=== PATIENT | female | born 1975 | race Native Hawaiian/Other Pacific Islander ===

== ENCOUNTER 2016-07-14 08:43 | Emergency (ER) | payer BC, OTHER ==
[2016-07-14 08:48] VITALS: BP 122/75; PULSE 59; TEMP 98.1; BMI 29.3
[2016-07-14] MEDS ORDERED: predniSONE 20 MG TABLET (UD) PO ONE (09:38)
--- NOTE | 2016-07-14 09:43 | PDOC ---
History of Present Illness - General Chief Complaint: Respiratory Stated Complaint: SOB, COUGH, (ASTHMA) Time Seen by Provider: 07/14/16 09:01 History Source: Patient Exam Limitations: No Limitations - History of Present Illness Initial Comments: 07/14/16 09:41 Chief complaint: Productive cough, shortness of breath with wheezing getting worse History of present illness: Patient is a 41-year-old female with a history of asthma and lupus here today complaining of a productive cough with beige to brownish color sputum 3 days with shortness of breath with wheezing unrelieved by using Ventolin pump multiple times for the last few days. Patient denies ever being hospitalized due to her asthma. Patient reports that she had an upper respiratory infection that started 1 week ago with nasal congestion and clear rhinorrhea and sore throat with a cough that has progressed to her current symptoms. Patient reports feeling short of breath even at rest worse with exertion. Patient denies any chance of . Patient denies fever. Patient denies any nasal congestion or sore throat or nausea or vomiting presently. Timing/Duration: getting worse Severity: moderate Associated Symptoms: reports: cough (productive beige ), shortness of breath ( with wheezing ) Past History - Past Medical History Allergies/Adverse Reactions: Allergies Allergy/AdvReac Type Severity Reaction Status Date / Time No Known Allergies Allergy Verified 07/14/16 08:45 Home Medications: Ambulatory Orders Albuterol Sulfate Inhaler - [Ventolin HFA Inhaler -] 2 inh PO Q4H PRN #1 inhaler MDD 6 07/14/16 Azithromycin [Zithromax 250mg Tablets -] 250 mg PO UTDICT #6 tab 07/14/16 Prednisone [Deltasone -] 20 mg PO BID #8 tablet 07/14/16 Asthma: Yes Other medical history: LUPUS - Psycho/Social/Smoking Cessation Hx Suicidal Ideation: No Smoking Status: Yes Smoking History: Current every day smoker Have you smoked in the past 12 months: Yes Number of Cigarettes Smoked Daily: 3 Information on smoking cessation initiated: No Review of Systems - Review of Systems Able to Perform ROS?: Yes Constitutional: No: Symptoms Reported HEENTM: No: Symptoms Reported Respiratory: Yes: Shortness of Breath, SOB with Exertion, SOB at Rest, Wheezing (diffuse ), Productive cough (beige for 3 days ) Cardiac (ROS): No: Symptoms Reported ABD/GI: No: Symptoms Reported : No: Symptoms Reported Musculoskeletal: No: Symptoms Reported Integumentary: No: Symptoms Reported *Physical Exam - Vital Signs Last Vital Signs Temp Pulse Resp BP Pulse Ox 98.1 F 59 L 20 122/75 95 07/14/16 08:45 07/14/16 08:45 07/14/16 08:45 07/14/16 08:45 07/14/16 08:45 - Physical Exam General Appearance: Yes: Appropriately Dressed HEENT: positive: Normal ENT Inspection Neck: negative: Lymphadenopathy (R), Lymphadenopathy (L) Respiratory/Chest: positive: Rhonchi (b/l clears slightly with cough ), Wheezing (diffuse expiratory ) Cardiovascular: positive: Regular Rhythm, Regular Rate, S1, S2 Integumentary: positive: Normal Color Neurologic: positive: Alert, Normal Response, Responsive ED Treatment Course - RADIOLOGY Radiology Studies Ordered: Category Date Time Status CHEST PA & LAT [RAD] Stat Radiology 07/14/16 09:38 Ordered Medical Decision Making - Medical Decision Making 07/14/16 09:41 07/14/16 09:42 Patient is a 41-year-old female with a history of asthma and lupus here today complaining of a productive cough with beige to brownish color sputum 3 days with shortness of breath with wheezing unrelieved by using Ventolin pump multiple times for the last few days. Patient denies ever being hospitalized due to her asthma. Patient reports that she had an upper respiratory infection that started 1 week ago with nasal congestion and clear rhinorrhea and sore throat with a cough that has progressed to her current symptoms. Patient reports feeling short of breath even at rest worse with exertion. Patient denies any chance of . Patient denies fever. Patient denies any nasal congestion or sore throat or nausea or vomiting presently. Reports going to [facility] 2 days ago was given nebulizer treatment and was told to use Mucinex DM which she has done which has not relieved symptoms. Asthma exacerbation Rule out infiltrate Plan: Prednisone 60 mg by mouth now then 20 mg twice a day for following 4 days DuoNeb every 15 minutes 3 X-ray chest PA and lateral no infiltrate azithromycin 250 mg 2 tabs today than one tab daily for following 4 days albuterol HFA 2 puffs every 4 hr prn wheezing/sob 07/14/16 10:49 *DC/Admit/Observation/Transfer Diagnosis at time of Disposition: Exacerbation of asthma, Bronchitis - Discharge Dispostion Disposition: HOME Condition at time of disposition: Stable - Prescriptions Prescriptions: Prednisone [Deltasone -] 20 mg PO BID #8 tablet Albuterol Sulfate Inhaler - [Ventolin HFA Inhaler -] 2 inh PO Q4H PRN #1 inhaler MDD 6 PRN Reason: Short Of Breath/Wheezing Azithromycin [Zithromax 250mg Tablets -] 250 mg PO UTDICT #6 tab - Patient Instructions Additional Instructions: Drink A lot a fluids and rest Return to emergency room if symptoms worsen any difficulty breathing Today your chest x-ray was negative for pneumonia Follow-up with your primary care provider within the next few days Patient voiced understanding of discharge instructions and all questions were answered
[2016-07-14] MEDS ORDERED: ALBUTEROL SO4 2.5/IPRATROPIUM 0.5 INH SOL 3 ML VIAL.NEB. NEB ONE (09:47)
[2016-07-14] MEDS ORDERED: predniSONE 20 MG TABLET (UD) ONE (09:47)
[2016-07-14] MEDS: ALBUTEROL SO4 2.5/IPRATROPIUM 0.5 INH SOL 3 ML VIAL.NEB. NEB SCH ×4 (09:52→11:03)
== END 2016-07-14 11:05 | disposition home or self-care (01) ==
LOC: JERFT 08:43
PROC: 3E0F7GC Introduction of Other Therapeutic Substance into Respiratory Tract, Via Natural or Artificial Opening (ICD-10-PCS; principal; 2016-07-14)
DX: J45.901 Unspecified asthma with (acute) exacerbation (principal); J40 Bronchitis, not specified as acute or chronic
CPT/HCPCS: 71020-TC; 99281-25

== ENCOUNTER 2016-07-15 08:48 | Emergency (ER) | payer OTHER ==
[2016-07-15 08:56] VITALS: TEMP 97.7; BMI 29.3
--- NOTE | 2016-07-15 09:22 | PDOC ---
History of Present Illness - General History Source: Patient Exam Limitations: No Limitations - History of Present Illness Initial Comments: 07/15/16 11:24 The patient is a 41 year old female with a significant past medical history of asthma, and lupus, presenting to the Emergency Department with constant right lower quadrant abdominal pain since last night. The patient reports that she was seen in the ED yesterday (07/14) for bronchitis, and reports that she developed lower right abdominal pain in the middle of the night after she coughed very hard. She describes the pain as if she pulled something at her lower right side, and rates the pain as a 4/10 in intensity, exacerbated by coughing. The patient reports that her last menstrual period was 2 weeks ago. The patient denies nausea, vomiting, and diarrhea. Patient denies fever, or chills. Patient denies dysuria, hematuria, or urinary frequency. Patient denies neck pain, or back pain. Past Medical Hx: asthma, lupus, herniated discs Surgical Hx: (19 years ago) <Kenyatta Nieto - Last Filed: 07/15/16 11:28> <Av Betancourt - Last Filed: 07/15/16 11:55> - General Chief Complaint: Pain Stated Complaint: ABD PAIN Time Seen by Provider: 07/15/16 09:06 Past History <Kenyatta Nieto - Last Filed: 07/15/16 11:28> - Past Medical History Asthma: Yes - Psycho/Social/Smoking Cessation Hx Suicidal Ideation: No Smoking Status: Yes Smoking History: Former smoker Have you smoked in the past 12 months: No Number of Cigarettes Smoked Daily: 3 If you are a former smoker, when did you quit?: 2017 Information on smoking cessation initiated: No Hx Alcohol Use: No Drug/Substance Use Hx: No Substance Use Type: None <Av Betancourt - Last Filed: 07/15/16 11:55> - Past Medical History Allergies/Adverse Reactions: Allergies Allergy/AdvReac Type Severity Reaction Status Date / Time No Known Allergies Allergy Verified 07/15/16 08:52 Home Medications: Ambulatory Orders Albuterol Sulfate Inhaler - [Ventolin HFA Inhaler -] 2 inh PO Q4H PRN #1 inhaler MDD 6 07/14/16 Azithromycin [Zithromax 250mg Tablets -] 250 mg PO UTDICT #6 tab 07/14/16 Prednisone [Deltasone -] 20 mg PO BID #8 tablet 07/14/16 Review of Systems - Review of Systems Able to Perform ROS?: Yes Comments:: 07/15/16 11:24 CONSTITUTIONAL: No reported: Fever, Chills, Diaphoresis, Generalized Weakness, Malaise, Loss of Appetite HEENT: No reported: Rhinorrhea, Nasal Congestion, Throat Pain, Throat Swelling, Difficulty Swallowing, Mouth Swelling, Ear Pain, Eye Pain, Visual Changes CARDIOVASCULAR: No reported: Chest Pain, Syncope, Palpitations, Irregular Heart Rate, Lightheadedness, Peripheral Edema RESPIRATORY: Reported: + Cough No reported: Shortness of Breath, SOB with Exertion, Orthopnea, Stridor, Hemoptysis GASTROINTESTINAL: Reported: + Right lower quadrant abdominal pain No reported: Abdominal Distension, Nausea, Vomiting, Diarrhea, Constipation, Melena, Hematochezia GENITOURINARY: No reported: Dysuria, Frequency, Urgency, Hesitancy, Flank Pain, Genital Pain MUSCULOSKELETAL: No reported: Arthralgia, Joint Swelling, Back pain, Neck Pain SKIN: No reported: Rash, Itching, Pallor HEMATOLOGIC/IMMUNOLOGIC: No reported: Easy Bleeding, Easy Bruising, Lymphadenopathy, Frequent infections ENDOCRINE: No reported: Unexplained Weight Gain, Unexplained Weight Loss, Heat Intolerance , Cold Intolerance NEUROLOGIC: No reported: Headache, Focal Weakness, Paresthesias, Vertigo, Lightheadedness, Unsteady Gait, Seizure, Mental Status Changes, Incontinence PSYCHIATRIC: No reported: Anxiety, Depression <Kenyatta Nieto - Last Filed: 07/15/16 11:28> *Physical Exam - Vital Signs Last Vital Signs Temp Pulse Resp BP Pulse Ox 97.7 F 105 H 18 115/68 98 07/15/16 08:50 07/15/16 08:50 07/15/16 08:50 07/15/16 08:50 07/15/16 08:50 - Physical Exam Comments: 07/15/16 11:28 GENERAL: The patient is awake, alert, and fully oriented, Nontoxic - in no acute distress. HEAD: Normocephalic, atraumatic. EYES: extraocular movements intact, sclera anicteric, conjunctiva clear. ENT: Normal voice, Moist mucous membranes. NECK: Normal range of motion, No JVD LUNGS: Scattered rhonchi and wheezing bilaterally. Breath sounds equal, clear to auscultation bilaterally. HEART: Regular rate and rhythm, normal S1 and S2 without murmur, rub or gallop. ABDOMEN: Mild right lower quadrant tenderness. Negative Rovsings sign. No rebound, no guarding. Soft, normoactive bowel sounds. No masses. No CVA tenderness EXTREMITIES: Normal range of motion, no edema. No clubbing or cyanosis. No cords , erythema, or tenderness. NEUROLOGICAL: No facial asymmetry, Normal speech, normal gait. PSYCH: Normal mood, normal affect. SKIN: Warm, Dry, normal turgor. <Kenyatta Nieto - Last Filed: 07/15/16 11:28> - Vital Signs Last Vital Signs Temp Pulse Resp BP Pulse Ox 97.7 F 105 H 18 115/68 98 07/15/16 08:50 07/15/16 08:50 07/15/16 08:50 07/15/16 08:50 07/15/16 08:50 <Av Betancourt - Last Filed: 07/15/16 11:55> ED Treatment Course - LABORATORY CBC & Chemistry Diagram: 07/15/16 09:30 07/15/16 09:30 - ADDITIONAL ORDERS Additional order review: Laboratory Results 07/15/16 07/15/16 07/15/16 09:30 09:30 09:23 Sodium 145 Potassium 3.9 Chloride 111 H Carbon Dioxide 24 Anion Gap 10 BUN 9 Creatinine 0.7 Creat Clearance w eGFR > 60 Random Glucose 92 Calcium 9.3 Total Bilirubin 0.4 AST 12 L ALT 16 Alkaline Phosphatase 52 Total Protein 6.9 Albumin 3.5 Urine Color Yellow Urine Appearance Clear Urine pH 5.0 Ur Specific [place] 1.024 Urine Protein Negative Urine Glucose (UA) Negative Urine Ketones Negative Urine Blood Negative Urine Nitrite Negative Urine Bilirubin Negative Urine Urobilinogen Negative Ur Leukocyte Esterase Negative Urine HCG, Qual Negative 07/15/16 09:30 RBC 4.33 MCV 93.8 MCHC 33.6 RDW 13.7 MPV 7.9 Neutrophils % 69.7 Lymphocytes % 22.2 Monocytes % 7.3 Eosinophils % 0.6 Basophils % 0.2 - Medications Given in the ED: ED Medications Discontinued Medications Generic Name Dose Route Start Last Admin Trade Name Freq PRN Reason Stop Dose Admin Albuterol/Ipratropium 1 amp 07/15/16 09:36 07/15/16 09:48 Duoneb - NEB 07/15/16 09:37 1 amp ONCE ONE Administration Sodium Chloride 500 mls @ 500 mls/hr 07/15/16 09:25 07/15/16 09:48 Normal Saline - IV 07/15/16 10:24 500 mls/hr ASDIR STA Administration Ketorolac Tromethamine 30 mg 07/15/16 09:36 07/15/16 09:48 Toradol Injection - IVPUSH 07/15/16 09:37 30 mg ONCE ONE Administration <Vick Nietoi - Last Filed: 07/15/16 11:28> - LABORATORY CBC & Chemistry Diagram: 07/15/16 09:30 07/15/16 09:30 <SerafinAv - Last Filed: 07/15/16 11:55> Medical Decision Making - Medical Decision Making 07/15/16 09:38 07/15/16 09:38 41y F hx of asthma, presents with sudden onset of RLQ pain last night after coughing. There is no associated fever/chills, nausea/vomiting, diarrhea, dysuria. The pain is only present when she is coughing. On exam the pt does have mild tenderness in the RLQ, however there is no deep tenderness when attemped to palpate into the same area at an angle. No rebound/guarding, neg rovsings sign. I suspect this is a muscle strain, but need to consider appendicitis, /ectopic. Will obtain basic blood work, ua, uhcg will give her some pain meds neb will reassess A portion of this note was documented by scribe services under my direction. I have reviewed the details of the note, within reason, and agree with the documentation with the following case summary and management plan written by me 07/15/16 11:51 pts labs reivewed unremarkable ua unremarkable not pt feeling improved abd was reassessed and it is soft notennder, still mildt enderness in the region suspect her sypmtoms are msk in nature and not a localized infective process. supportive measures at home willd /c with supportive crae. return precautions were discussed including signs of appendicitis. I discussed the physical exam findings, ancillary test results and final diagnoses with the patient. I answered all of the patient's questions. The patient was satisfied with the care received and felt comfortable with the discharge plan and treatment plan. The patient will call their primary care physician within 24 hours to arrange follow-up and will return to the Emergency Department with any new, persistent or worsening symptoms. <Av Betancourt - Last Filed: 07/15/16 11:55> *DC/Admit/Observation/Transfer - Attestations Scribe Attestion: 07/15/16 11:28 Documentation prepared by Kenyatta Nieto, acting as medical doctor nuclear medicine for Av Betancourt MD. <Kenyatta Nieto - Last Filed: 07/15/16 11:28> - Discharge Dispostion Admit: No <Av Betancourt - Last Filed: 07/15/16 11:55> Diagnosis at time of Disposition: Bronchitis Abdominal muscle strain Qualifiers: Encounter type: initial encounter Qualified Code(s): S39.011A - Strain of muscle, fascia and tendon of abdomen, initial encounter - Discharge Dispostion Disposition: HOME Condition at time of disposition: Improved - Referrals Referrals: STAFF,NOT ON [Primary Care Provider] - - Patient Instructions Printed Discharge Instructions: DI for Acute Bronchitis, DI for Abdominal Muscle Strain Additional Instructions: Return to the emergency department immediately with ANY new, persistent or worsening symptoms. Take ibuprofen 400mg every 6 hours. You MUST call and follow up with Dr. John in 3-4 days for further evaluation of your symptoms. Results were discussed with you. Please make sure your doctor reviews the results of your emergency evaluation. Print Language: YEMENI
[2016-07-15] MEDS ORDERED: SODIUM CHLORIDE 500 ML IV STA (09:25)
[2016-07-15] MEDS ORDERED: KETOROLAC TROMETHAMINE 30 MG/1 ML VIAL IVPUSH ONE (09:36)
[2016-07-15] MEDS ORDERED: ALBUTEROL SO4 2.5/IPRATROPIUM 0.5 INH SOL 3 ML VIAL.NEB. NEB ONE ×2 (09:36→09:43)
[2016-07-15] MEDS ORDERED: KETOROLAC TROMETHAMINE 30 MG/1 ML VIAL ONE (09:43)
[2016-07-15 10:14] LABS: BASOPHIL 0.2 % (0-2.0); EOSINOPHIL 0.6 % (0-4.5); MCH 31.5 pg (25.7-33.7); MCHC 33.6 g/dl (32.0-36.0); MEAN CELL VOLUME 93.8 fl (80-96); MEAN PLT VOLUME 7.9 fl (7.5-11.1); NEUTROPHILS 69.7 % (42.8-82.8); PLATELET COUNT 251 K/MM3 (134-434); RDW 13.7 % (11.6-15.6)
[2016-07-15 10:16] LABS: URINE APPEARANCE CLEAR; URINE BILIRUBIN NEGATIVE (NEGATIVE); URINE BLOOD NEGATIVE (NEGATIVE); URINE COLOR YELLOW; URINE GLUCOSE (UA) NEGATIVE (NEGATIVE); URINE KETONE NEGATIVE (NEGATIVE); URINE LEUK ESTERASE NEGATIVE (NEGATIVE); URINE NITRITE NEGATIVE (NEGATIVE); URINE PROTEIN NEGATIVE (NEGATIVE); URINE UROBILINOGEN NEGATIVE E.U./dl (0.2-1.0)
[2016-07-15 10:38] LABS: ALBUMIN 3.5 g/dl (3.4-5.0); ALK PHOS 52 U/L (45-117); ANION GAP 10 (8-16); BILIRUBIN,TOTAL 0.4 mg/dL (0.2-1.0); CALCIUM 9.3 mg/dL (8.5-10.1); CO2 24 mmol/L (21-32); CREATININE 0.7 mg/dL (0.55-1.02); GLUCOSE,RANDOM 92 mg/dL (74-106); SGOT/AST 12 U/L (15-37); SGPT/ALT 16 U/L (12-78); TOT PROT 6.9 g/dl (6.4-8.2)
[2016-07-15 12:12] VITALS: BP 123/64; PULSE 68
== END 2016-07-15 12:12 | disposition home or self-care (01) ==
LOC: JER 08:48
PROC: 3E0F7GC Introduction of Other Therapeutic Substance into Respiratory Tract, Via Natural or Artificial Opening (ICD-10-PCS; principal; 2016-07-15)
PROC: 3E0333Z Introduction of Anti-inflammatory into Peripheral Vein, Percutaneous Approach (ICD-10-PCS; 2016-07-15)
DX: J40 Bronchitis, not specified as acute or chronic (principal); S39.011A Strain of muscle, fascia and tendon of abdomen, initial encounter; X50.9XXA Other and unspecified overexertion or strenuous movements or postures, initial encounter; R06.7 Sneezing; Y92.038 Other place in apartment as the place of occurrence of the external cause
CPT/HCPCS: 36415; 80053; 81003; 84703; 85025; 99284-25

== ENCOUNTER 2018-09-27 11:02 | Emergency (ER) | payer OTHER ==
[2018-09-27 11:11] VITALS: BMI 26.6
--- NOTE | 2018-09-27 12:13 | PDOC ---
History of Present Illness - General Chief Complaint: Pain Stated Complaint: ABD. PAIN/ BLOOD ON STOOL Time Seen by Provider: 09/27/18 12:13 - History of Present Illness Initial Comments: 09/27/18 12:33 Ms. Galvez is a 43 yo female w/ pmh of asthma, lupus (does not take medications), rheumatoid arthritis, and several disc herniations who presents for evaluation of diffuse abdominal pain. Patient reports she was well until 0230 this AM when symptoms woke her from sleep. She was able to deal with the pain overnight however reports she had an episode of blood and mucous-y stool this AM. Denies any diarrhea or constipation. Is continuing to have pain which prompted her visit. Has never had symptoms like this before. Reports she took 2 Excedrin for a migraine last night however was otherwise her normal self. The patient denies chest pain, shortness of breath, headache and dizziness. Denies fever, chills, nausea, vomit, diarrhea and constipation. Denies dysuria, frequency, urgency and hematuria. Past History - Past Medical History Allergies/Adverse Reactions: Allergies Allergy/AdvReac Type Severity Reaction Status Date / Time No Known Allergies Allergy Verified 09/27/18 11:11 Home Medications: Ambulatory Orders Ondansetron [Zofran Odt -] 4 mg SL TID PRN #10 od.tablet 09/27/18 Asthma: Yes COPD: No GI Disorders: Yes (IBS) Other medical history: RA, Lupus - Reproductive History (#): 2 Para: 2 - Suicide/Smoking/Psychosocial Hx Smoking Status: Yes Smoking History: Current every day smoker Have you smoked in the past 12 months: No Number of Cigarettes Smoked Daily: 3 If you are a former smoker, when did you quit?: 2017 Information on smoking cessation initiated: No Hx Alcohol Use: No Drug/Substance Use Hx: No Substance Use Type: None Review of Systems - Review of Systems Comments:: 09/27/18 12:37 GENERAL/CONSTITUTIONAL: No fever or chills. No weakness. HEAD, EYES, EARS, NOSE AND THROAT: No change in vision. No ear pain or discharge. No sore throat. CARDIOVASCULAR: No chest pain or shortness of breath RESPIRATORY: No cough, wheezing, or hemoptysis. GASTROINTESTINAL: +Abd pain w/ rectal bleeding as described. No nausea, vomiting , diarrhea or constipation. GENITOURINARY: No dysuria, frequency, or change in urination. MUSCULOSKELETAL: No joint or muscle swelling or pain. No neck or back pain. SKIN: No rash NEUROLOGIC: No headache, vertigo, loss of consciousness, or change in strength/ sensation. ENDOCRINE: No increased thirst. No abnormal weight change HEMATOLOGIC/LYMPHATIC: No anemia, easy bleeding, or history of blood clots. ALLERGIC/IMMUNOLOGIC: No hives or skin allergy. *Physical Exam - Vital Signs Last Vital Signs Temp Pulse Resp BP Pulse Ox 98 F 68 18 125/64 96 09/27/18 11:08 09/27/18 11:08 09/27/18 11:08 09/27/18 11:08 09/27/18 11:08 - Physical Exam Comments: 09/27/18 12:37 GENERAL: Awake, alert, and fully oriented, in no acute distress HEAD: No signs of trauma, normocephalic, atraumatic EYES: PERRLA, EOMI, sclera anicteric, conjunctiva clear ENT: Auricles normal inspection, hearing grossly normal, nares patent, oropharynx clear without exudates. Moist mucosa NECK: Normal ROM, supple, no lymphadenopathy, JVD, or masses LUNGS: No distress, speaks full sentences, clear to auscultation bilaterally HEART: Regular rate and rhythm, normal S1 and S2, no murmurs, rubs or gallops, peripheral pulses normal and equal bilaterally. ABDOMEN: +Diffuse abd. TTP. Soft, normoactive bowel sounds. No guarding, no rebound. No masses EXTREMITIES: Normal inspection, Normal range of motion, no edema. No clubbing or cyanosis. NEUROLOGICAL: Cranial nerves II through XII grossly intact. Normal speech, normal gait, no focal sensorimotor deficits SKIN: Warm, Dry, normal turgor, no rashes or lesions noted. RECTAL: No stool noted in vaginal vault. Skin tag appreciated w/out hemmorhoids. ED Treatment Course - LABORATORY CBC & Chemistry Diagram: 09/27/18 12:40 09/27/18 12:40 Medical Decision Making - Medical Decision Making 09/27/18 12:58 Ms. Galvez is a 43 yo female w/ pmh as described who presents for evaluation of symptoms concerning for viral illness vs. lupus related symptoms vs. appendicitis vs. other acute abdominal process. On repeat evaluation patient remembered nephew recently had URI w/ same abdominal symptoms. Patient workup currently pending with labs as below. 09/27/18 14:01 Labs grossly wnl as below. Symptoms improved following pepcid, fluids, tylenol, zofran. No concern for acute process at this time. Discharging to home. Laboratory Results - last 24 hr 09/27/18 09/27/18 09/27/18 12:25 12:40 12:40 WBC 4.4 RBC 4.74 Hgb 13.8 Hct 42.3 MCV 89.2 MCH 29.0 MCHC 32.5 RDW 12.7 Plt Count 241 MPV 8.1 Absolute Neuts (auto) 2.2 Neutrophils % 50.7 D Lymphocytes % 35.2 D Monocytes % 12.4 H Eosinophils % 1.5 D Basophils % 0.2 Nucleated RBC % 0 PT with INR 12.30 INR 1.04 PTT (Actin FS) 32.6 Sodium Potassium Chloride Carbon Dioxide Anion Gap BUN Creatinine Est GFR (CKD-EPI)AfAm Est GFR (CKD-EPI)NonAf Random Glucose Lactic Acid Calcium Total Bilirubin AST ALT Alkaline Phosphatase Total Protein Albumin Urine Color Urine Appearance Urine pH Ur Specific [place] Urine Protein Urine Glucose (UA) Urine Ketones Urine Blood Urine Nitrite Urine Bilirubin Urine Urobilinogen Ur Leukocyte Esterase Stool Occult Blood Negative 09/27/18 09/27/18 09/27/18 12:40 12:40 12:40 WBC RBC Hgb Hct MCV MCH MCHC RDW Plt Count MPV Absolute Neuts (auto) Neutrophils % Lymphocytes % Monocytes % Eosinophils % Basophils % Nucleated RBC % PT with INR INR PTT (Actin FS) Sodium 137 Potassium 4.8 Chloride 109 H Carbon Dioxide 21 Anion Gap 7 L BUN 11 Creatinine 0.4 L Est GFR (CKD-EPI)AfAm 148.89 Est GFR (CKD-EPI)NonAf 128.47 Random Glucose 83 Lactic Acid 0.9 Calcium 9.6 Total Bilirubin 0.5 AST 35 ALT 23 Alkaline Phosphatase 84 Total Protein 6.8 Albumin 3.4 Urine Color Yellow Urine Appearance Clear Urine pH 5.0 Ur Specific [place] 1.016 Urine Protein Negative Urine Glucose (UA) Negative Urine Ketones Negative Urine Blood Negative Urine Nitrite Negative Urine Bilirubin Negative Urine Urobilinogen 0.2 Ur Leukocyte Esterase Negative Stool Occult Blood *DC/Admit/Observation/Transfer Diagnosis at time of Disposition: Abdominal pain Qualifiers: Abdominal location: unspecified location Qualified Code(s): R10.9 - Unspecified abdominal pain - Discharge Dispostion Disposition: HOME - Prescriptions Prescriptions: Ondansetron [Zofran Odt -] 4 mg SL TID PRN #10 od.tablet PRN Reason: Nausea - Referrals - Patient Instructions Printed Discharge Instructions: DI for Abdominal Pain-Adult Additional Instructions: You were evaluated today in the ER for your abdominal pain. We evaluated you with labs and improved your symptoms with medication. No concerning findings were found and we believe your symptoms are due to a viral illness. We have sent a proscription to your pharmacy for nausea control. Please take all medications as proscribed. You may take over the counter tylenol per package instructions for further pain control. Follow-up with primary care provider early next week for further evaluation. Return to ER if any further fever, chills, increased pain, or other concerning symptoms. - Post Discharge Activity
[2018-09-27] MEDS ORDERED: ACETAMINOPHEN 1000 MG/100 ML VIAL (NON FORMULARY) IVPB ONE (12:31)
[2018-09-27] MEDS ORDERED: FAMOTIDINE 20 MG/50 ML IVPB 20 MG/50 ML MG IVPB ONE ×2 (12:31→12:42)
[2018-09-27] MEDS ORDERED: SODIUM CHLORIDE 1,000 ML IV STA (12:31)
[2018-09-27] MEDS ORDERED: ACETAMINOPHEN INJECTION 100 ML IVPB ONE (12:41)
--- NOTE | 2018-09-27 12:57 | PDOC ---
Documentation entered by Luis Miranda SCRIBE, acting as scribe for Brenton Blandon MD. Brenton Blandon MD: This documentation has been prepared by the Ruben clemente Nirvannie, SCRIBE, under my direction and personally reviewed by me in its entirety. I confirm that the documentation accurately reflects all work, treatment, procedures, and medical decision making performed by me. Attending Attestation - Resident Resident Name: Aubrey Saeed - ED Attending Attestation I have performed the following: I have examined & evaluated the patient, The case was reviewed & discussed with the resident, I agree w/resident's findings & plan - HPI HPI: 09/27/18 12:43 CC: Abdominal pain. HPI: The patient is a 43 year old female, with a significant past medical history of Lupus, RA, and herniated discs, who presents to the emergency department with, sudden onset abdominal pain awaking her from her sleep onsetting at 2:30am with associated nausea and diarrhea. Patient notes attempting to defecate at home at which time she noticed mucus and blood. She notes her grandson was recently sick with similar symptoms last week. She denies any recent antibiotic usage. She denies recent fevers, chills, headache or dizziness. She denies recent dysuria, frequency, urgency or hematuria. She denies recent chest pain or shortness of breath. Allergies: NKDA - Physicial Exam PE: 09/27/18 12:51 Vitals: Triage vital signs reviewed General Appearance: No acute distress, well nourished, well developed Head: Atraumatic Neck: Supple Chest Wall: Nontender Cardiac: Regular rate and rhythm, no murmurs, no rubs, no gallops Lungs: Clear to auscultation bilateral, good air movement bilaterally Abdomen: +Diffuse abdominal discomfort, no rebound, no guarding. Soft, nondistended. Rectal: Exam deferred Extremities: Full range of motion to all extremities, no cyanosis, clubbing, or edema Skin: Warm and dry, no rashes or lesions, no rash, no petechiae Neuro: AOX3; Cranial Nerves 2-12 grossly intact, Strength intact to all extremities, Sensation intact to all extremities. Psych: Normal mood, normal affect - Medical Decision Making 09/27/18 12:53 43 year old female, with a significant past medical history of Lupus, RA, and herniated discs, who presents to the emergency department with, sudden onset abdominal pain Plan is: Pepcid Tylenol Fluids CBC CMP Lactic Coags UA 09/27/18 15:54 43 years old with past medical history significant for lupus rheumatoid arthritis herniated disc presents with one-day history of lower abdominal discomfort and multiple episodes of watery diarrhea. Patient's grandson has the exact same diarrheal illness Status post fluids and antiemetics patient feels much better no concerning findings on patient's laboratory analysis We'll recommend aggressive hydration at home Zofran for nausea she'll return to the ED for any severe worsening symptoms or for any concerns. Findings, need for follow-up and strict return instructions discussed patient.
[2018-09-27 12:59] LABS: BASO % 0.2 % (0-2.0); EOS % 1.5 % (0-4.5); HEMATOCRIT 42.3 % (32.4-45.2); HEMOGLOBIN 13.8 GM/dL (10.7-15.3); LYMPH % 35.2 % (8-40); MCHC 32.5 g/dl (32.0-36.0); MEAN CELL VOLUME 89.2 fl (80-96); MEAN PLT VOLUME 8.1 fl (7.5-11.1); MONO % 12.4 % (3.8-10.2); NEUT % 50.7 % (42.8-82.8); PLATELET COUNT 241 K/MM3 (134-434); RBC 4.74 M/mm3 (3.60-5.2); RDW 12.7 % (11.6-15.6); WHITE BLOOD COUNT 4.4 K/mm3 (4.0-10.0)
[2018-09-27 13:03] LABS: URINE APPEARANCE CLEAR; URINE BILIRUBIN NEGATIVE (NEGATIVE); URINE COLOR YELLOW; URINE GLUCOSE (UA) NEGATIVE (NEGATIVE); URINE KETONE NEGATIVE (NEGATIVE); URINE LEUK ESTERASE NEGATIVE (NEGATIVE); URINE NITRITE NEGATIVE (NEGATIVE); URINE PROTEIN NEGATIVE (NEGATIVE); URINE UROBILINOGEN 0.2 mg/dL (0.2-1.0)
[2018-09-27 13:17] VITALS: TEMP 97.9
[2018-09-27 13:23] LABS: INR 1.04 (0.83-1.09); PROTHROMBIN TIME (PATIENT) 12.3 SEC (9.7-13.0)
[2018-09-27 13:25] LABS: ACTIVATED PTT 32.6 SECONDS (25.2-36.5)
[2018-09-27 13:28] LABS: ALBUMIN 3.4 g/dl (3.4-5.0); BILIRUBIN,TOTAL 0.5 mg/dL (0.2-1); CALCIUM 9.6 mg/dL (8.5-10.1); CREATININE 0.4 mg/dL (0.55-1.3); POTASSIUM 4.8 mmol/L (3.5-5.1); TOT PROT 6.8 g/dl (6.4-8.2)
[2018-09-27] MEDS ORDERED: ONDANSETRON 4 MG/2 ML VIAL IVPUSH ONE (13:58)
[2018-09-27] MEDS ORDERED: ONDANSETRON 4 MG/2 ML VIAL ONE (14:10)
[2018-09-27 14:12] LABS: HCG,QUALITATIVE URINE NEGATIVE
[2018-09-27 14:25] VITALS: BP 126/80; PULSE 66
== END 2018-09-27 14:31 | disposition home or self-care (01) ==
LOC: JER 11:02
PROC: 3E0337Z Introduction of Electrolytic and Water Balance Substance into Peripheral Vein, Percutaneous Approach (ICD-10-PCS; principal; 2018-09-27)
PROC: 3E033GC Introduction of Other Therapeutic Substance into Peripheral Vein, Percutaneous Approach (ICD-10-PCS; 2018-09-27)
PROC: 3E033GC Introduction of Other Therapeutic Substance into Peripheral Vein, Percutaneous Approach (ICD-10-PCS; 2018-09-27)
PROC: 3E033NZ Introduction of Analgesics, Hypnotics, Sedatives into Peripheral Vein, Percutaneous Approach (ICD-10-PCS; 2018-09-27)
DX: R10.84 Generalized abdominal pain (principal)
CPT/HCPCS: 36415; 80053; 81003; 82272; 83605; 84703; 85025; 85610; 85730; 87086; 96361; 96365; 96375; 99283-25; J0131; J7030

== ENCOUNTER 2021-09-21 09:39 | Inpatient (IN) | payer OTHER ==
[2021-09-21] MEDS ORDERED: ONDANSETRON 4 MG/2 ML VIAL IVPB ONE (09:57)
[2021-09-21] MEDS ORDERED: MAG HYDROX/AL HYDROX/SIMETH 30 ML UNIT-DOSE CUP PO ONE (09:58)
[2021-09-21] MEDS ORDERED: FAMOTIDINE 20 MG/50 ML IVPB 20 MG/50 ML MG IVPB ONE (09:58)
[2021-09-21] MEDS ORDERED: MAG HYDROX/AL HYDROX/SIMETH 30 ML UNIT-DOSE CUP ONE (10:06)
[2021-09-21] MEDS ORDERED: FAMOTIDINE 10 MG/ML VIAL IVPB ONE (10:07)
[2021-09-21] MEDS ORDERED: ONDANSETRON 4 MG/2 ML VIAL ONE (10:07)
[2021-09-21 10:40] LABS: VENOUS BASE EXCESS -0.2 mmol/L (-2-2); VENOUS O2 SATURATION 78.5 % (70-80); VENOUS PCO2 20.5 mmHg (38-52); VENOUS PH 7.586 (7.310-7.410)
[2021-09-21 10:42] LABS: BASO % 0.4 % (0-2.0); EOS % 0.1 % (0-4.5); HEMATOCRIT 41.9 % (32.4-45.2); HEMOGLOBIN 14.3 GM/dL (10.7-15.3); MCH 31.7 pg (25.7-33.7); MCHC 34.1 g/dl (32.0-36.0); MEAN CELL VOLUME 92.8 fl (80-96); MEAN PLT VOLUME 6.9 fl (7.5-11.1); MONO % 4.7 % (3.8-10.2); NEUT % 88.8 % (42.8-82.8); PLATELET COUNT 296 10^3/uL (134-434); RBC 4.51 M/mm3 (3.60-5.2); RDW 13.7 % (11.6-15.6); WHITE BLOOD COUNT 16.1 K/mm3 (4.0-10.0)
[2021-09-21 10:59] LABS: CHLORIDE 106 mmol/L (98-107); SODIUM 137 mmol/L (136-145)
[2021-09-21 11:01] LABS: CALCIUM 9.4 mg/dL (8.5-10.1); GLUCOSE,RANDOM 159 mg/dL (74-106)
[2021-09-21 11:02] LABS: ANION GAP 13 MMOL/L (8-16); BLOOD UREA NITROGEN 13.4 mg/dL (7-18); CO2 19 mmol/L (21-32); LIPASE 73 U/L (73-393)
[2021-09-21 11:04] LABS: CREATININE 0.7 mg/dL (0.55-1.3); SGOT/AST 20 U/L (15-37); SGPT/ALT 19 U/L (13-61)
[2021-09-21 11:06] LABS: TOT PROT 7.6 g/dl (6.4-8.2)
[2021-09-21 11:07] LABS: ALK PHOS 121 U/L (45-117)
[2021-09-21 11:10] LABS: LACTIC ACID 2.4 mmol/L (0.4-2.0); PHOSPHOROUS 1.1 mg/dL (2.5-4.9)
[2021-09-21] MEDS ORDERED: SODIUM CHLORIDE 0.9% 500 ML INFUS.BAG IV ONE (11:14)
[2021-09-21] MEDS ORDERED: ACETAMINOPHEN 1000 MG/100 ML BAG IVPB ONE (11:37)
[2021-09-21] MEDS ORDERED: ACETAMINOPHEN INJECTION 100 ML IVPB ONE (11:41)
[2021-09-21 12:13] LABS: EPI CELLS >36 /uL (0-25.1); HYALINE CASTS 3 /uL (0-3.1); PH,URINE >= 9.0 (5.0-8.0); URINE APPEARANCE CLEAR; URINE BACTERIA 466 /uL (0-1359); URINE BILIRUBIN NEGATIVE (NEGATIVE); URINE COLOR YELLOW; URINE GLUCOSE (UA) NEGATIVE (NEGATIVE); URINE KETONE 4+ (NEGATIVE); URINE LEUK ESTERASE TRACE (NEGATIVE); URINE NITRITE NEGATIVE (NEGATIVE); URINE PROTEIN 1+ (NEGATIVE); URINE RBC 19 /uL (0-23.9); URINE UROBILINOGEN 0.2 mg/dL (0.2-1.0); URINE WBC 10 /uL (0-25.8)
[2021-09-21 12:14] LABS: HCG,QUALITATIVE URINE Negative
[2021-09-21] MEDS ORDERED: morphine CARPU-JECT 2 MG/1 ML DISP.SYRIN IVPUSH ONE (14:37)
[2021-09-21 15:26] VITALS: BMI 31.0
[2021-09-21] MEDS ORDERED: ONDANSETRON 4 MG/2 ML VIAL IVPUSH PRN (15:51)
[2021-09-21 15:59] LABS: LACTIC ACID 2.3 mmol/L (0.4-2.0)
[2021-09-21] MEDS ORDERED: PIPERACILLIN/TAZOBACTAM 3.375 GM VIAL IVPB ONE ×2 (16:31→22:41)
[2021-09-21] MEDS ORDERED: DEXTROSE 5%-WATER - 50 ML IVPB ONE ×2 (16:31→22:41)
[2021-09-21] MEDS: D5-1/2NS+20 MEQ KCL - 20 MEQ/1,000 ML INFUS.BAG IV SCH (16:45)
[2021-09-21] MEDS: PIPERACILLIN/TAZOB 3.375 GM 3.375 GM in DEXTROSE 5%-WATER - 50 ML IVPB SCH ×2 (16:46→23:09)
[2021-09-21] MEDS: PANTOPRAZOLE SODIUM 40 MG VIAL IVPUSH SCH (22:17)
[2021-09-21] MEDS: HEPARIN NA (PORCINE) 5,000 UNITS/ML 1ML VIAL SQ SCH (22:17)
[2021-09-22] MEDS: D5-1/2NS+20 MEQ KCL - 20 MEQ/1,000 ML INFUS.BAG IV SCH (06:07)
[2021-09-22] MEDS ORDERED: ACETAMINOPHEN 1000 MG/100 ML BAG IVPB ONE (07:12)
[2021-09-22] MEDS ORDERED: DEXTROSE 5%-WATER - 50 ML IVPB ONE ×2 (08:41→17:14)
[2021-09-22] MEDS ORDERED: PIPERACILLIN/TAZOBACTAM 3.375 GM VIAL IVPB ONE ×2 (08:41→17:14)
[2021-09-22] MEDS: PIPERACILLIN/TAZOB 3.375 GM 3.375 GM in DEXTROSE 5%-WATER - 50 ML IVPB SCH ×2 (09:08→18:36)
[2021-09-22] MEDS: PANTOPRAZOLE SODIUM 40 MG VIAL IVPUSH SCH (09:09)
[2021-09-22] MEDS: HEPARIN NA (PORCINE) 5,000 UNITS/ML 1ML VIAL SQ SCH ×2 (09:09→21:22)
[2021-09-22] MEDS: METHIMAZOLE 10 MG TABLET PO SCH (09:09)
[2021-09-22] MEDS: ESCITALOPRAM OXALATE 20 MG TABLET PO SCH (09:11)
[2021-09-22 09:38] LABS: BASO % 0.2 % (0-2.0); EOS % 0.5 % (0-4.5); HEMATOCRIT 38.2 % (32.4-45.2); HEMOGLOBIN 12.7 GM/dL (10.7-15.3); LYMPH % 24.9 % (8-40); MCHC 33.1 g/dl (32.0-36.0); MEAN CELL VOLUME 93.7 fl (80-96); MEAN PLT VOLUME 7.6 fl (7.5-11.1); NEUT % 68.4 % (42.8-82.8); PLATELET COUNT 266 10^3/uL (134-434); RBC 4.08 M/mm3 (3.60-5.2); RDW 13.3 % (11.6-15.6); WHITE BLOOD COUNT 9.7 K/mm3 (4.0-10.0)
[2021-09-22 09:48] LABS: INR 1.13 (0.83-1.09)
[2021-09-22 10:01] LABS: ALBUMIN 3.3 g/dl (3.4-5.0); BLOOD UREA NITROGEN 7.4 mg/dL (7-18)
[2021-09-22 10:03] LABS: CALCIUM 8.5 mg/dL (8.5-10.1)
[2021-09-22 10:04] LABS: CREATININE 0.6 mg/dL (0.55-1.3)
[2021-09-22 10:06] LABS: BILIRUBIN,TOTAL 0.5 mg/dL (0.2-1); TOT PROT 6.5 g/dl (6.4-8.2)
[2021-09-22 12:11] LABS: PHOSPHOROUS 2.1 mg/dL (2.5-4.9)
[2021-09-22 12:16] LABS: MAGNESIUM 2.3 mg/dL (1.8-2.4)
[2021-09-22] MEDS ORDERED: KCL 10 MEQ IVPB 10 MEQ/100 ML INFUS.BAG IVPB SCH (12:45)
[2021-09-22] MEDS ORDERED: POTASSIUM PHOSPHATE 15 MM in SODIUM CHLORIDE 250 ML IVPB ONE (12:54)
[2021-09-22] MEDS ORDERED: PIPERACILLIN/TAZOB 3.375 GM 3.375 GM in DEXTROSE 5%-WATER - 50 ML IVPB SCH (18:00)
[2021-09-22] MEDS ORDERED: ZOLPIDEM TARTRATE 5 MG TABLET PO ONE (22:05)
[2021-09-23] MEDS ORDERED: DEXTROSE 5%-WATER - 50 ML IVPB ONE ×3 (01:45→16:16)
[2021-09-23] MEDS ORDERED: PIPERACILLIN/TAZOBACTAM 3.375 GM VIAL IVPB ONE ×4 (01:45→16:16)
[2021-09-23] MEDS: PIPERACILLIN/TAZOB 3.375 GM 3.375 GM in DEXTROSE 5%-WATER - 50 ML IVPB SCH ×3 (03:00→17:11)
[2021-09-23] MEDS: D5-1/2NS+20 MEQ KCL - 20 MEQ/1,000 ML INFUS.BAG IV SCH ×3 (03:38→17:10)
[2021-09-23] MEDS ORDERED: POLYETHYLENE GLYCOL (HEALTHYLAX) 3350 17 GM PACKET PO PRN (06:01)
[2021-09-23 08:25] LABS: BASO % 0.2 % (0-2.0); EOS % 1.2 % (0-4.5); HEMATOCRIT 37.9 % (32.4-45.2); HEMOGLOBIN 12.7 GM/dL (10.7-15.3); LYMPH % 26.8 % (8-40); MCH 31.5 pg (25.7-33.7); MCHC 33.5 g/dl (32.0-36.0); MEAN PLT VOLUME 6.9 fl (7.5-11.1); MONO % 5.9 % (3.8-10.2); NEUT % 65.9 % (42.8-82.8); PLATELET COUNT 269 10^3/uL (134-434); RBC 4.03 M/mm3 (3.60-5.2); RDW 14.2 % (11.6-15.6); WHITE BLOOD COUNT 8.8 K/mm3 (4.0-10.0)
[2021-09-23 08:43] LABS: ALBUMIN 3.4 g/dl (3.4-5.0); BLOOD UREA NITROGEN 4.8 mg/dL (7-18); CALCIUM 8.7 mg/dL (8.5-10.1); MAGNESIUM 2.3 mg/dL (1.8-2.4)
[2021-09-23 08:46] LABS: CREATININE 0.6 mg/dL (0.55-1.3); PHOSPHOROUS 2.7 mg/dL (2.5-4.9)
[2021-09-23 08:48] LABS: BILIRUBIN,TOTAL 0.4 mg/dL (0.2-1); TOT PROT 6.6 g/dl (6.4-8.2)
[2021-09-23] MEDS: HEPARIN NA (PORCINE) 5,000 UNITS/ML 1ML VIAL SQ SCH ×2 (09:17→22:10)
[2021-09-23] MEDS: METHIMAZOLE 10 MG TABLET PO SCH (09:17)
[2021-09-23] MEDS: ESCITALOPRAM OXALATE 20 MG TABLET PO SCH (09:17)
[2021-09-23 11:39] LABS: COCAINE, UR NEGATIVE (NEGATIVE); METHADONE, UR NEGATIVE (NEGATIVE); URINE BENZODIAZEPINES NEGATIVE (NEGATIVE)
[2021-09-23 11:40] LABS: PHENCYCLIDINE,URINE NEGATIVE (NEGATIVE)
[2021-09-23 11:43] LABS: OPIATES, URI POSITIVE (NEGATIVE); URINE AMPHETAMINES NEGATIVE (NEGATIVE); URINE BARBITURATES NEGATIVE (NEGATIVE)
[2021-09-23] MEDS ORDERED: ZOLPIDEM TARTRATE 5 MG TABLET PO ONE (22:05)
[2021-09-24] MEDS ORDERED: DEXTROSE 5%-WATER - 50 ML IVPB ONE ×3 (01:47→14:56)
[2021-09-24] MEDS ORDERED: PIPERACILLIN/TAZOBACTAM 3.375 GM VIAL IVPB ONE ×3 (01:47→14:56)
[2021-09-24] MEDS: PIPERACILLIN/TAZOB 3.375 GM 3.375 GM in DEXTROSE 5%-WATER - 50 ML IVPB SCH ×3 (02:19→17:03)
[2021-09-24 09:02] LABS: CHLORIDE 108 mmol/L (98-107); SODIUM 140 mmol/L (136-145)
[2021-09-24 09:07] LABS: CALCIUM 8.8 mg/dL (8.5-10.1)
[2021-09-24 09:08] LABS: ANION GAP 7 MMOL/L (8-16); CO2 24 mmol/L (21-32); GLUCOSE,RANDOM 79 mg/dL (74-106)
[2021-09-24] MEDS: D5-1/2NS+20 MEQ KCL - 20 MEQ/1,000 ML INFUS.BAG IV SCH ×3 (09:09→22:22)
[2021-09-24] MEDS: ESCITALOPRAM OXALATE 20 MG TABLET PO SCH (09:11)
[2021-09-24] MEDS: METHIMAZOLE 10 MG TABLET PO SCH (09:11)
[2021-09-24] MEDS: HEPARIN NA (PORCINE) 5,000 UNITS/ML 1ML VIAL SQ SCH ×2 (09:11→21:01)
[2021-09-24 09:12] LABS: BLOOD UREA NITROGEN 2.9 mg/dL (7-18); CREATININE 0.5 mg/dL (0.55-1.3)
[2021-09-24 14:01] LABS: HIV INTERPRETATION NEGATIVE (NEGATIVE)
[2021-09-24] MEDS: ZOLPIDEM TARTRATE 5 MG TABLET PO PRN (20:48)
[2021-09-25] MEDS ORDERED: PIPERACILLIN/TAZOBACTAM 3.375 GM VIAL IVPB ONE ×3 (00:54→14:37)
[2021-09-25] MEDS ORDERED: DEXTROSE 5%-WATER - 50 ML IVPB ONE ×3 (00:55→14:37)
[2021-09-25] MEDS: PIPERACILLIN/TAZOB 3.375 GM 3.375 GM in DEXTROSE 5%-WATER - 50 ML IVPB SCH ×3 (01:10→17:00)
[2021-09-25] MEDS ORDERED: KETOROLAC TROMETHAMINE 15 MG/ML VIAL IVPB ONE (04:59)
[2021-09-25 07:56] LABS: BASO % 0.3 % (0-2.0); HEMATOCRIT 37.9 % (32.4-45.2); HEMOGLOBIN 13.1 GM/dL (10.7-15.3); MCH 32.2 pg (25.7-33.7); MCHC 34.6 g/dl (32.0-36.0); MEAN CELL VOLUME 93.2 fl (80-96); MEAN PLT VOLUME 7.1 fl (7.5-11.1); MONO % 9.7 % (3.8-10.2); PLATELET COUNT 254 10^3/uL (134-434); RBC 4.07 M/mm3 (3.60-5.2); RDW 13.7 % (11.6-15.6); WHITE BLOOD COUNT 5.3 K/mm3 (4.0-10.0)
[2021-09-25 08:12] LABS: ALBUMIN 3.3 g/dl (3.4-5.0); CALCIUM 8.5 mg/dL (8.5-10.1)
[2021-09-25 08:13] LABS: BLOOD UREA NITROGEN 3.3 mg/dL (7-18)
[2021-09-25 08:15] LABS: CREATININE 0.7 mg/dL (0.55-1.3)
[2021-09-25 08:17] LABS: BILIRUBIN,TOTAL 0.7 mg/dL (0.2-1); TOT PROT 6.7 g/dl (6.4-8.2)
[2021-09-25] MEDS: HEPARIN NA (PORCINE) 5,000 UNITS/ML 1ML VIAL SQ SCH ×3 (09:05→21:37)
[2021-09-25] MEDS: ESCITALOPRAM OXALATE 20 MG TABLET PO SCH (09:06)
[2021-09-25] MEDS: METHIMAZOLE 10 MG TABLET PO SCH (09:06)
[2021-09-25] MEDS: D5-1/2NS+20 MEQ KCL - 20 MEQ/1,000 ML INFUS.BAG IV SCH ×2 (11:39→16:16)
[2021-09-25] MEDS ORDERED: PEG 3350/NA SULF BICARB CL/KCL 4000 ML SOLN.RECON PO ONE (17:00)
[2021-09-25] MEDS ORDERED: BISACODYL 5 MG TABLET.DR (FP) PO ONE (20:00)
[2021-09-25] MEDS: ZOLPIDEM TARTRATE 5 MG TABLET PO PRN (20:52)
[2021-09-26] MEDS ORDERED: DEXTROSE 5%-WATER - 50 ML IVPB ONE ×2 (01:15→13:22)
[2021-09-26] MEDS ORDERED: PIPERACILLIN/TAZOBACTAM 3.375 GM VIAL IVPB ONE ×2 (01:15→13:22)
[2021-09-26] MEDS: PIPERACILLIN/TAZOB 3.375 GM 3.375 GM in DEXTROSE 5%-WATER - 50 ML IVPB SCH ×3 (02:36→17:28)
[2021-09-26 09:05] LABS: HEMOGLOBIN 13.5 GM/dL (10.7-15.3); MCH 32.3 pg (25.7-33.7); MCHC 34.6 g/dl (32.0-36.0); MEAN CELL VOLUME 93.4 fl (80-96); PLATELET COUNT 277 10^3/uL (134-434); RBC 4.17 M/mm3 (3.60-5.2); RDW 13.7 % (11.6-15.6); WHITE BLOOD COUNT 5.5 K/mm3 (4.0-10.0)
[2021-09-26 09:18] LABS: INR 1.19 (0.83-1.09); PROTHROMBIN TIME (PATIENT) 13.7 SEC (9.7-13.0)
[2021-09-26 09:23] LABS: CHLORIDE 109 mmol/L (98-107); SODIUM 139 mmol/L (136-145)
[2021-09-26 09:27] LABS: CALCIUM 8.9 mg/dL (8.5-10.1)
[2021-09-26 09:28] LABS: ANION GAP 8 MMOL/L (8-16); CO2 22 mmol/L (21-32); GLUCOSE,RANDOM 101 mg/dL (74-106)
[2021-09-26 09:31] LABS: CREATININE 0.6 mg/dL (0.55-1.3)
[2021-09-26 10:05] LABS: BLOOD UREA NITROGEN 2.9 mg/dL (7-18)
[2021-09-26 10:38] LABS: ANISOCYTOSIS 0; HELMET CELLS 0; HOWELL-JOLLY BODIES 0; MACROCYTOSIS 0; OVALOCYTE 0; ROULEAU 0; SICKELED CELLS 0; TARGET CELLS 0; TEAR DROP CELLS 0; TOXIC GRANULATION 0
[2021-09-26] MEDS: METHIMAZOLE 10 MG TABLET PO SCH (13:37)
[2021-09-26] MEDS: ESCITALOPRAM OXALATE 20 MG TABLET PO SCH (13:37)
[2021-09-26] MEDS: oxyCODONE HCL 5 MG TABLET PO PRN (18:46)
[2021-09-26] MEDS ORDERED: LIDOCAINE PATCH REMOVAL MC SCH (22:00)
[2021-09-26] MEDS ORDERED: LIDOCAINE 5% TOPICAL PATCH TP ONE (22:53)
[2021-09-26] MEDS: ZOLPIDEM TARTRATE 5 MG TABLET PO PRN (23:10)
[2021-09-26] MEDS ORDERED: KETOROLAC TROMETHAMINE 15 MG/ML VIAL IVPB ONE (23:19)
[2021-09-27] MEDS: oxyCODONE HCL 5 MG TABLET PO PRN (02:50)
[2021-09-27 05:50] VITALS: TEMP 98.5
[2021-09-27 08:01] LABS: CALCIUM 8.9 mg/dL (8.5-10.1)
[2021-09-27 08:02] LABS: BLOOD UREA NITROGEN 7.1 mg/dL (7-18)
[2021-09-27 08:04] LABS: CREATININE 0.6 mg/dL (0.55-1.3)
[2021-09-27] MEDS: AMOX TR/POT CLAV 875MG/125MG TABLETS (FP) PO SCH ×2 (08:30→16:33)
[2021-09-27] MEDS ORDERED: oxyCODONE HCL 5 MG TABLET PO PRN (09:57)
[2021-09-27] MEDS: METHIMAZOLE 10 MG TABLET PO SCH (10:02)
[2021-09-27] MEDS: ESCITALOPRAM OXALATE 20 MG TABLET PO SCH (10:06)
[2021-09-27 13:22] VITALS: BP 128/81; PULSE 92
== END 2021-09-27 16:40 | disposition home or self-care (01) | DRG 246 ==
LOC: JER 09:39 → JERBED 13:12 → J7W 14:57
PROVIDERS: ADMIT Family Medicine; ATTEND Family Medicine
PROC: 0DBN8ZX Excision of Sigmoid Colon, Via Natural or Artificial Opening Endoscopic, Diagnostic (ICD-10-PCS; 2021-09-26)
PROC: 0DBM8ZX Excision of Descending Colon, Via Natural or Artificial Opening Endoscopic, Diagnostic (ICD-10-PCS; principal; 2021-09-26 12:00)
DX: K55.039 Acute (reversible) ischemia of large intestine, extent unspecified (principal); E03.9 Hypothyroidism, unspecified; J45.909 Unspecified asthma, uncomplicated; M06.9 Rheumatoid arthritis, unspecified; R11.2 Nausea with vomiting, unspecified; E86.0 Dehydration; E87.2 Acidosis; D72.829 Elevated white blood cell count, unspecified; E87.6 Hypokalemia; N83.209 Unspecified ovarian cyst, unspecified side; G62.9 Polyneuropathy, unspecified; F41.8 Other specified anxiety disorders; M54.50 Low back pain, unspecified; K52.9 Noninfective gastroenteritis and colitis, unspecified; N83.292 Other ovarian cyst, left side; F12.90 Cannabis use, unspecified, uncomplicated; F17.200 Nicotine dependence, unspecified, uncomplicated; K63.89 Other specified diseases of intestine; K64.8 Other hemorrhoids; K92.2 Gastrointestinal hemorrhage, unspecified
CPT/HCPCS: 36415; 71045-TC-FY; 74177-TC; 76830-TC; 76856-TC; 80048; 80053; 80307; 81003; 82378; 82803; 83605; 83690; 83735; 84100; 84443; 84484; 84703; 85025; 85610; 86140; 86850; 86900; 86901; 87040; 87045; 87046; 87086; 87177; 87205; 87207; 87209; 87324; 87328; 87329; 87389; 87425; 87427; 87449; 87798; 87804; 88305-TC; 93005; 93010; 99285-25; C9803-CS; J1644; Q9967; U0003; U0005